=== PATIENT | male | born 2000 | race Caucasian/White ===

== ENCOUNTER 2020-06-27 14:43 | Emergency (ER) | payer OTHER ==
[~2020-06-27] VITALS: Ht 185.4 cm; Wt 87.6 kg
[2020-06-27] MEDS ORDERED: NS 1,000 ML IV ONE (15:30)
[2020-06-27 15:54] LABS: BASO % 0.6 % (0.0-1.0); EOS # 0.3 10^3/uL (0.0-0.5); EOS % 3.6 % (0.0-3.0); HEMATOCRIT 48.7 % (42.0-52.0); HEMOGLOBIN 16.3 g/dl (13.5-17.5); LYMPH # 2.4 10^3/uL (1.5-5.0); MEAN CORPUSCULAR HEMOGLOBIN 29.7 pg (27.0-33.0); MEAN CORPUSCULAR HGB CONC 33.5 g/dl (32.0-36.5); MEAN CORPUSCULAR VOLUME 88.7 fl (80.0-96.0); MONO # 0.3 10^3/uL (0.0-0.8); MONO % 4.7 % (0.0-5.0); NEUTROPHILS # 3.9 10^3/uL (1.5-8.5); NEUTROPHILS % 55.8 % (36.0-66.0); PLATELET COUNT, AUTOMATED 207 10^3/uL (150-450); RED BLOOD COUNT 5.49 10^6/uL (4.30-6.10)
[2020-06-27] MEDS ORDERED: ISOVUE-370 76% 100ML VIAL As Ordered ONE (16:01)
[2020-06-27 16:08] LABS: INR 1.06
[2020-06-27 16:09] LABS: PARTIAL THROMBOPLASTIN TIME 25.5 SECONDS (24.2-38.5)
[2020-06-27 16:28] LABS: ALBUMIN 4.9 GM/DL (3.2-5.2); ALT/SGPT 28 U/L (12-78); AMYLASE 34 U/L (25-115); BILIRUBIN,DIRECT < 0.1 MG/DL (0.0-0.2); BILIRUBIN,TOTAL 0.5 MG/DL (0.2-1.0); LIPASE 70 U/L (73-393); TOTAL PROTEIN 7.5 GM/DL (6.4-8.2)
--- NOTE | 2020-06-27 16:40 | REP ---
INDICATION: bloody diarrhea. COMPARISON: None. TECHNIQUE: Helical scanning was acquired and 4 mm axial images are re-formatted. Coronal and sagittal MPR images were generated and reviewed. The contrast enhancement dose is 100 mL of intravenous Isovue 370. FINDINGS: Digital preliminary manager floor radiograph is unremarkable. A normal bowel gas pattern is seen. The lung bases are clear on axial CT images. There is no evidence of pleural effusion or upper abdominal ascites. The liver and the spleen are normal in size homogeneous in texture. No abnormality is noted in the gallbladder or pancreas. No adrenal abnormality is observed on either side. The kidneys enhance symmetrically. There is a tiny cyst in the cortex of the upper pole on the left measuring 5 mm. A small accessory splenule is noted at the inferior tip of the spleen. No retroperitoneal mass or adenopathy is observed. No abdominal wall defect is seen. Urinary bladder, kidneys, and seminal vesicles are unremarkable. There is mild mural thickening in the distal colon from sigmoid through rectosigmoid. This may reflect enterocolitis. There is some opaque ingested material in the right colon. No obstructive lesion is seen. The distal ileum is unremarkable. A normal appendix is seen in the right lower quadrant at the cecal tip. No free air or free fluid is seen. No bony destructive lesion. IMPRESSION: Mild mural thickening in the distal left colon question enterocolitis. Normal appendix. Otherwise unremarkable CT abdomen and pelvis. <Electronically signed by Brian Aponte > 06/27/20 [id number]
[2020-06-27 17:27] VITALS: BP 132/72
== END 2020-06-27 17:29 | disposition home or self-care (01) ==
LOC: M ED 14:43
DX: K52.9 Noninfective gastroenteritis and colitis, unspecified (principal); F17.210 Nicotine dependence, cigarettes, uncomplicated
CPT/HCPCS: 74177; 80047; 80076; 82150; 83690; 85025; 85610; 85730; 96360; 99284; Q9967

== ENCOUNTER 2020-11-15 18:19 | Emergency (ER) | payer OTHER ==
[~2020-11-15] VITALS: Ht 182.9 cm; Wt 93.2 kg
[2020-11-15 18:19] VITALS: BP 140/89
[2020-11-15] MEDS ORDERED: LIDOCAINE 2% W/EPINEPHRINE 20ML VIAL **PRES FREE INJ ONE (19:05)
== END 2020-11-15 19:58 | disposition home or self-care (01) ==
LOC: M ED 18:19
DX: S01.01XA Laceration without foreign body of scalp, initial encounter (principal); W22.8XXA Striking against or struck by other objects, initial encounter; Y92.9 Unspecified place or not applicable; Y93.9 Activity, unspecified; Y99.1 Military activity

== ENCOUNTER 2020-11-24 12:59 | Emergency (ER) | payer OTHER ==
[~2020-11-24] VITALS: Ht 185.4 cm; Wt 95.0 kg
[2020-11-24 13:51] VITALS: BP 129/71
== END 2020-11-24 13:53 | disposition home or self-care (01) ==
LOC: M ED 12:59
DX: Z48.02 Encounter for removal of sutures (principal)